=== PATIENT | male | born 1965 ===

== ENCOUNTER 2016-11-25 19:40 | Emergency (ER) | payer SELFPAY ==
[2016-11-25 19:47] VITALS: BP 145/90; PULSE 85; RESP 20; TEMP 98; O2SAT 99
[2016-11-25] MEDS ORDERED: Fluorescein 1 mg Ophthalmic Strip OS ONE (20:06)
--- NOTE | 2016-11-25 20:08 | C.PDOC ---
History Of Present Illness Patient reports pain, irritation, redness and tearing to left eye. 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 He was not wearing protective eyewear. Denies use of contacts or glasses, no visual changes Time Seen by Provider: 11/25/16 20:02 Chief Complaint (Nursing): ENT Problem History Per: Patient History/Exam Limitations: no limitations Onset/Duration Of Symptoms: Hrs Current Symptoms Are (Timing): Still Present Injury To Eye?: Yes Severity: Moderate Wears Contact Lens?: No Associated Symptoms: Pain, Other (irritation, redness, tearing). denies: Decreased Vision Recent travel outside of the [place]: No Past Medical History Reviewed: Historical Data, Nursing Documentation, Vital Signs Vital Signs: Last Vital Signs Temp 98 F 11/25/16 19:45 Pulse 85 11/25/16 19:45 Resp 20 11/25/16 19:45 BP 145/90 11/25/16 19:45 Pulse Ox 99 11/25/16 20:14 - [facility] Procedures OTHER SKIN & SUBQ I D (01/17/14) Family History: States: Unknown Family Hx - Social History Hx Alcohol Use: No Hx Substance Use: No - Immunization History Hx Tetanus Toxoid Vaccination: No Hx Influenza Vaccination: No Hx Pneumococcal Vaccination: No Review Of Systems Eyes: Positive for: Redness, Other (pain, irritation, redness, tearing to left eye). Negative for: Vision Change Physical Exam - Physical Exam Appears: Non-toxic, No Acute Distress Skin: Warm, Dry, No Rash Head: Atraumatic, Normacephalic Eye(s): bilateral: PERRL, EOMI, Eyelid Inflammation (none), left: Other ( diffuse conjunctival and scleral injection, tearing) Neurological/Psych: Oriented x3, Normal Speech, Normal Cognition ED Course And Treatment O2 Sat by Pulse Oximetry: 99 (room air) Pulse Ox Interpretation: Normal Medical Decision Making Medical Decision Making: Procedure: * tetracaine and fluoroscein with uptake to central eye no foreign body on eyelid eversion Dispo: antibiotic eye drop prescribed. Instruct to follow up with optho Disposition Counseled Patient/Family Regarding: Need For Followup, Rx Given - Disposition Referrals: Arnulfo Barrera MD [Staff Provider] - Disposition: HOME/ ROUTINE Disposition Time: 20:27 Condition: STABLE Additional Instructions: Aplicar 1 gota de antibitico cuatro veces al da christiano 7 palomares Seguimiento con oculista Prescriptions: Polymyxin/Trimethoprim Sulfate [Polytrim Ophth Soln] 1 drop OS QID #1 bottle Instructions: Corneal Abrasion (ED) Print Language: CHINESE - POA Present On Arrival: None - Clinical Impression Clinical Impression: Corneal abrasion - 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 - Scribe Statement The provider has reviewed the documentation as recorded by the Scribe Tobi Valentine All medical record entries made by the Scribe were at my direction and personally dictated by me. I have reviewed the chart and agree that the record accurately reflects my personal performance of the history, physical exam, medical decision making, and the department course for this patient. I have also personally directed, reviewed, and agree with the discharge instructions and disposition.
[2016-11-25] MEDS ORDERED: Fluorescein 1 mg Ophthalmic Strip ONE (20:15)
[2016-11-25] MEDS ORDERED: Tetracaine 0.5% Ophth (OR ONLY) ONE (20:15)
== END 2016-11-25 20:35 | disposition home or self-care (01) ==
LOC: C.ER 19:40
DX: S05.02XA Injury of conjunctiva and corneal abrasion without foreign body, left eye, initial encounter (principal); X58.XXXA Exposure to other specified factors, initial encounter; Y92.89 Other specified places as the place of occurrence of the external cause; Y99.0 Civilian activity done for income or pay

== ENCOUNTER 2016-12-23 09:50 | Emergency (ER) | payer SELFPAY ==
[2016-12-23 10:56] LABS: BASO % 0.8 % (0.0-2.0); EOS # 0.1 K/uL (0.0-0.7); EOS % 2.3 % (0.0-4.0); HEMOGLOBIN 13.7 g/dL (12.0-18.0); LYMPH # 1.6 K/uL (1.0-4.3); LYMPH % 31.7 % (20.0-40.0); MEAN CELL VOLUME 86.1 fL (80.0-94.0); MEAN CORPUSCULAR HEMOGLOBIN 29.1 pg (27.0-31.0); MEAN CORPUSCULAR HGB CONC 33.7 g/dL (33.0-37.0); MEAN PLATELET VOLUME 8.4 fL (7.2-11.7); MONO # 0.3 K/uL (0.0-0.8); MONO % 5.9 % (0.0-10.0); NEUT % 59.3 % (50.0-75.0); RBC 4.72 Mil/uL (4.40-5.90); RED CELL DISTRIBUTION WIDTH 13.9 % (11.5-14.5)
--- NOTE | 2016-12-23 11:01 | C.PDOC ---
History Of Present Illness 51 yr old male presents to the ER with complaints of rectal pain for the past 3 months. Patient states the pain is constant, worse with sitting down, walking and bowel movements. Patient reports he went to the clinic today but was sent to the ER from there. States he has been applying a cream from his home country with no relief. He also mentions a headache for the last 2 weeks. Patient denies any medical history and is not on any daily medicine. Also denies fever, nausea, vomiting, abdominal pain, diarrhea, change in stool, blood in stool, dysuria or incontinence, Time Seen by Provider: 12/23/16 09:53 Chief Complaint (Nursing): Headache History Per: Patient History/Exam Limitations: no limitations Onset/Duration Of Symptoms: Days (3 months ) Current Symptoms Are (Timing): Still Present Past Medical History Reviewed: Historical Data, Nursing Documentation, Vital Signs Vital Signs: Last Vital Signs Temp 98.4 F 12/23/16 12:48 Pulse 61 12/23/16 15:36 Resp 17 12/23/16 15:36 BP 141/81 12/23/16 15:36 Pulse Ox 99 12/23/16 16:09 - [facility] Procedures OTHER SKIN & SUBQ I D (01/17/14) Family History: States: No Known Family Hx - Social History Hx Alcohol Use: No Hx Substance Use: No - Immunization History Hx Tetanus Toxoid Vaccination: No Hx Influenza Vaccination: No Hx Pneumococcal Vaccination: No Review Of Systems Except As Marked, All Systems Reviewed And Found Negative. Constitutional: Negative for: Fever Gastrointestinal: Positive for: Rectal Pain. Negative for: Nausea, Vomiting, Abdominal Pain, Diarrhea Genitourinary: Negative for: Dysuria, Incontinence Physical Exam - Physical Exam Appears: Non-toxic, No Acute Distress Skin: Warm, Dry Head: Atraumatic, Normacephalic Chest: Symmetrical, No Tenderness Cardiovascular: Rhythm Regular, No Murmur Respiratory: Normal Breath Sounds, No Rales, No Rhonchi, No Wheezing Rectal: No Hemorrhoids, No Mass, No Tenderness, Other (No anal fissures. No palpable lesions or masses. ) Extremity: Normal ROM, No Swelling Neurological/Psych: Oriented x3, Normal Speech, Normal Motor ED Course And Treatment - Laboratory Results Result Diagrams: 12/23/16 10:33 12/23/16 10:33 O2 Sat by Pulse Oximetry: 99 - CT Scan/US CT - Head Other Rad Studies (CT/US): Read By Radiologist, Radiology Report Reviewed CT/US Interpretation: PROCEDURE: CT HEAD WITHOUT CONTRAST. HISTORY: Headache. COMPARISON: None available. TECHNIQUE: Axial computed tomography images were obtained through the head/brain without intravenous contrast. Radiation dose: Total exam DLP = 902.20 mGy-cm. This CT exam was performed using one or more of the following dose reduction techniques: Automated exposure control, adjustment of the mA and/or kV according to patient size, and/ or use of iterative reconstruction technique. FINDINGS: HEMORRHAGE: No intracranial hemorrhage. BRAIN: There is a focal low-attenuation area in the right posterior parietal white matter extending to the subcortical white matter. There is no mass effect or extra-axial fluid collection. VENTRICLES: The ventricles are normal in size, shape and configuration. CALVARIUM: The skull base and calvarium are normal. PARANASAL SINUSES: Predominantly clear. MASTOID AIR CELLS: Predominantly clear. OTHER FINDINGS: None. IMPRESSION: Asymmetric abnormal low density in the right posterior parietal white matter extending to the subcortical white matter, nonspecific and could represent an age indeterminate infarction, demyelination, vasogenic edema or mass. An MRI of the brain without and with intravenous contrast is recommended for further evaluation. No acute intracranial hemorrhage. MRI - Brain Other Rad Studies (CT/US): Read By Radiologist, Radiology Report Reviewed CT/US Interpretation: PROCEDURE: MRI BRAIN WITH AND WITHOUT CONTRAST. HISTORY : ? mass on CT. COMPARISON: Noncontrast head CT performed earlier the same day. TECHNIQUE: Multiplanar, multisequence MR images of the brain were obtained with and without intravenous contrast enhancement. 15 mL Omniscan injected intravenously. FINDINGS: HEMORRHAGE: None. DWI: No evidence of an acute or early subacute infarction. BRAIN PARENCHYMA: The questioned abnormal density in the right posterior parietal white matter on CT examination corresponds to mild peritrigonal hyperintensities, worse on the right. These are nonspecific and could represent mild chronic microangiopathic changes or periventricular leukomalacia. There is a 10 x 9 mm focal T2/FLAIR hyperintense area in the left medial temporal lobe without corresponding restricted diffusion or abnormal enhancement on post-contrast images. There is no mass effect or abnormal extra-axial fluid collection. The midline sagittal structures are normal. ENHANCEMENT: No abnormal intracranial enhancement. VENTRICLES: The ventricles are normal in size, shape and configuration. CRANIUM: There is normal bone marrow signal pattern. ORBITS: Grossly unremarkable. PARANASAL SINUSES/MASTOIDS: There is a retention cyst/ polyp in the right maxillary sinus. The remaining included paranasal sinuses and mastoid air cells are clear. VASCULAR SYSTEM: There are normal signal voids in the larger intracranial arteries. OTHER FINDINGS: None . IMPRESSION: 1. 10 x 9 mm focal nonenhancing abnormality in the left medial temporal lobe is strictly nonspecific. The differential considerations include remote infarction , gliosis, encephalopathy, vasculitis, demyelination and neoplasm. Short-term interval follow-up, clinical correlation and follow-up is advised. 2. The questioned abnormal density in the right posterior parietal white matter on CT examination corresponds to nonspecific peritrigonal white matter changes which could represent chronic microangiopathic changes or periventricular leukomalacia. Medical Decision Making Medical Decision Makin Disc MRI w rads Dr Lundberg- rec f/u MRI in 3 months [address] Florence re MRI- rec no further intervention or testing at this time. I disc results, plan for follow up, and rtr at length with the pt. he v/u and agrees w plan. all questions and concerns were addressed. Disposition - Disposition Referrals: [facility] [Outside] Yemi Sethi MD [Staff Provider] - Disposition: HOME/ ROUTINE Disposition Time: 16:09 Condition: STABLE Additional Instructions: Please follow up with your primary doctor to schedule a follow up MRI in 3 months. Follow up with the GI specialist for further evaluation of your rectal pain. Return to the ER for any worsening symptoms, fever, vomiting, seizures, visual changes, numbness, weakness or for any other concerns. Prescriptions: Acetaminophen with Codeine [Tylenol with Codeine #3 Tablet] 1 each PO Q4H PRN # 8 tablet PRN Reason: Pain, Moderate (4-7) Forms: Gen Discharge Inst Gambian Print Language: NORTHERN IRISH - Clinical Impression Clinical Impression: Rectal pain, chronic - Scribe Statement The provider has reviewed the documentation as recorded by the Shakir Giles Provider Attestation: All medical record entries made by the Viniibbev were at my direction and personally dictated by me. I have reviewed the chart and agree that the record accurately reflects my personal performance of the history, physical exam, medical decision making, and the department course for this patient. I have also personally directed, reviewed, and agree with the discharge instructions and disposition.
[2016-12-23 11:16] LABS: ALBUMIN 4.3 g/dL (3.5-5.0)
[2016-12-23 11:18] LABS: GFR AFRICAN-AMERICAN > 60; GFR NON-AFRICAN AMERICAN > 60
[2016-12-23 11:19] LABS: ALB/GLOB RATIO 1.2 (1.0-2.1); ALT/SGPT 19 U/L (21-72); AST/SGOT 18 U/L (17-59); BLOOD UREA NITROGEN 17 mg/dL (9-20)
[2016-12-23 11:20] LABS: CALCIUM 9.3 mg/dl (8.6-10.4)
--- NOTE | 2016-12-23 11:37 | CT ---
PROCEDURE: CT HEAD WITHOUT CONTRAST. HISTORY: Headache COMPARISON: None available. TECHNIQUE: Axial computed tomography images were obtained through the head/brain without intravenous contrast. Radiation dose: Total exam DLP = 902.20 mGy-cm. This CT exam was performed using one or more of the following dose reduction techniques: Automated exposure control, adjustment of the mA and/or kV according to patient size, and/or use of iterative reconstruction technique. FINDINGS: HEMORRHAGE: No intracranial hemorrhage. BRAIN: There is a focal low-attenuation area in the right posterior parietal white matter extending to the subcortical white matter. There is no mass effect or extra-axial fluid collection. VENTRICLES: The ventricles are normal in size, shape and configuration. CALVARIUM: The skull base and calvarium are normal. PARANASAL SINUSES: Predominantly clear. MASTOID AIR CELLS: Predominantly clear. OTHER FINDINGS: None. IMPRESSION: Asymmetric abnormal low density in the right posterior parietal white matter extending to the subcortical white matter, nonspecific and could represent an age indeterminate infarction, demyelination, vasogenic edema or mass. An MRI of the brain without and with intravenous contrast is recommended for further evaluation. No acute intracranial hemorrhage.
[2016-12-23 11:49] LABS: URINE BILIRUBIN NEGATIVE (NEGATIVE); URINE BLOOD 1+ (NEGATIVE); URINE CLARITY Clear (Clear); URINE COLOR Straw (YELLOW); URINE GLUCOSE (UA) NORMAL (Normal); URINE LEUKOCYTE ESTERASE NEG Leu/uL (Negative); URINE NITRATE NEGATIVE (NEGATIVE); URINE PROTEIN NEGATIVE (NEGATIVE); URINE UROBILINOGEN NORMAL mg/dL (0.2-1.0)
[2016-12-23 12:48] VITALS: TEMP 98.4
[2016-12-23] MEDS ORDERED: Gadodiamide 287 MG/ML VIAL (15ML) IV ONE (13:30)
--- NOTE | 2016-12-23 14:19 | MRI ---
PROCEDURE: MRI BRAIN WITH AND WITHOUT CONTRAST HISTORY: ? mass on CT COMPARISON: Noncontrast head CT performed earlier the same day. TECHNIQUE: Multiplanar, multisequence MR images of the brain were obtained with and without intravenous contrast enhancement. 15 mL Omniscan injected intravenously. FINDINGS: HEMORRHAGE: None DWI: No evidence of an acute or early subacute infarction. BRAIN PARENCHYMA: The questioned abnormal density in the right posterior parietal white matter on CT examination corresponds to mild peritrigonal hyperintensities, worse on the right. These are nonspecific and could represent mild chronic microangiopathic changes or periventricular leukomalacia. There is a 10 x 9 mm focal T2/FLAIR hyperintense area in the left medial temporal lobe without corresponding restricted diffusion or abnormal enhancement on post-contrast images. There is no mass effect or abnormal extra-axial fluid collection. The midline sagittal structures are normal. ENHANCEMENT: No abnormal intracranial enhancement. VENTRICLES: The ventricles are normal in size, shape and configuration. CRANIUM: There is normal bone marrow signal pattern. ORBITS: Grossly unremarkable. PARANASAL SINUSES/MASTOIDS: There is a retention cyst/ polyp in the right maxillary sinus. The remaining included paranasal sinuses and mastoid air cells are clear. VASCULAR SYSTEM: There are normal signal voids in the larger intracranial arteries. OTHER FINDINGS: None . IMPRESSION: 1. 10 x 9 mm focal nonenhancing abnormality in the left medial temporal lobe is strictly nonspecific. The differential considerations include remote infarction, gliosis, encephalopathy, vasculitis, demyelination and neoplasm. Short-term interval follow-up, clinical correlation and follow-up is advised. 2. The questioned abnormal density in the right posterior parietal white matter on CT examination corresponds to nonspecific peritrigonal white matter changes which could represent chronic microangiopathic changes or periventricular leukomalacia.
[2016-12-23 15:37] VITALS: BP 141/81; PULSE 61; RESP 17
[2016-12-23 16:09] VITALS: O2SAT 99
== END 2016-12-23 16:34 | disposition home or self-care (01) ==
LOC: C.ER 09:50
DX: K62.89 Other specified diseases of anus and rectum (principal); G89.29 Other chronic pain
CPT/HCPCS: 70450; 70553; 80053; 81001; 82948; 85025; 96374; 99285; A9579; G0328; J1885

== ENCOUNTER 2017-12-30 00:43 | Emergency (ER) | payer OTHER ==
[2017-12-30 01:06] VITALS: PULSE 70
[2017-12-30] MEDS ORDERED: Alum-Mag Hydrox-Simethicone Susp (30 mL) PO STA (01:50)
[2017-12-30 02:34] LABS: BASO % 0.2 % (0.0-2.0); EOS # 0.1 K/uL (0.0-0.7); EOS % 0.6 % (0.0-4.0); HEMOGLOBIN 13.4 g/dL (12.0-18.0); LYMPH # 1.3 K/uL (1.0-4.3); LYMPH % 13.4 % (20.0-40.0); MEAN CELL VOLUME 84.6 fL (80.0-94.0); MEAN CORPUSCULAR HEMOGLOBIN 28.9 pg (27.0-31.0); MEAN CORPUSCULAR HGB CONC 34.2 g/dL (33.0-37.0); MEAN PLATELET VOLUME 8.7 fL (7.2-11.7); MONO # 0.7 K/uL (0.0-0.8); MONO % 7.3 % (0.0-10.0); NEUT # 7.8 K/uL (1.8-7.0); NEUT % 78.5 % (50.0-75.0); NRBC % 0.1 % (0.0-2.0); RBC 4.64 Mil/uL (4.40-5.90); RED CELL DISTRIBUTION WIDTH 14.2 % (11.5-14.5); WHITE BLOOD COUNT 9.9 K/uL (4.8-10.8)
[2017-12-30 02:42] LABS: ALB/GLOB RATIO 1.4 (1.0-2.1); ALBUMIN 4.5 g/dL (3.5-5.0); ALT/SGPT 25 U/L (21-72); AST/SGOT 17 U/L (17-59); BLOOD UREA NITROGEN 17 mg/dL (9-20); CALCIUM 9.6 mg/dl (8.6-10.4); GFR AFRICAN-AMERICAN > 60; GFR NON-AFRICAN AMERICAN > 60; LIPASE 24 U/L (23-300)
[2017-12-30] MEDS ORDERED: Magnesium Citrate Oral SOL (300 ml) PO ONE (02:55)
--- NOTE | 2017-12-30 02:58 | C.PDOC ---
History Of Present Illness 52 y/o male presents to ED for complaints of abdominal discomfort associated with nausea and described as gas like pain that began yesterday. Patient also reports straining during bowel movement with small hard stools. Denies blood in stool, vomiting, fever, hematuria, or UTI symptoms. Patients states he took a tablet of plidan for gas pain from his country with no relief. Time Seen by Provider: 12/30/17 01:09 Chief Complaint (Nursing): Abdominal Pain History Per: Patient History/Exam Limitations: no limitations Onset/Duration Of Symptoms: Days (1) Current Symptoms Are (Timing): Still Present Location Of Pain/Discomfort: Diffuse Radiation Of Pain To:: None Quality Of Discomfort: Gas Associated Symptoms: Nausea, Constipation. denies: Fever, Chills, Vomiting, Diarrhea, Urinary Symptoms Exacerbating Factors: None Alleviating Factors: None Last Bowel Movement: Days Ago Recent travel outside of the [place]: No Past Medical History Reviewed: Historical Data, Nursing Documentation, Vital Signs Vital Signs: Last Vital Signs Temp 98.4 F 12/30/17 03:15 Pulse 70 12/30/17 03:15 Resp 18 12/30/17 03:15 BP 156/95 H 12/30/17 03:15 Pulse Ox 99 12/30/17 03:15 - Medical History PMH: No Chronic Diseases - [facility] Procedures OTHER SKIN & SUBQ I D (01/17/14) Family History: States: Unknown Family Hx - Social History Hx Alcohol Use: No Hx Substance Use: No - Immunization History Hx Tetanus Toxoid Vaccination: No Hx Influenza Vaccination: No Hx Pneumococcal Vaccination: No Review Of Systems Constitutional: Negative for: Fever, Chills Gastrointestinal: Positive for: Nausea, Abdominal Pain, Constipation. Negative for: Vomiting, Diarrhea Genitourinary: Negative for: Dysuria, Hematuria Skin: Negative for: Rash Neurological: Negative for: Weakness, Numbness Physical Exam - Physical Exam Appears: Well, Non-toxic, No Acute Distress Skin: Normal Color, Warm, Dry, No Rash Head: Atraumatic, Normacephalic Eye(s): bilateral: Normal Inspection, PERRL, EOMI Oral Mucosa: Moist Neck: Supple Chest: Symmetrical, No Tenderness Cardiovascular: Rhythm Regular Respiratory: Normal Breath Sounds, No Decreased Breath Sounds, No Rales, No Rhonchi, No Wheezing Gastrointestinal/Abdominal: Bowel Sounds (Active ), Soft, Tenderness (Diffusly minimal ), Distention (Minimal ), No Guarding, No Rebound Back: Normal Inspection, No CVA Tenderness Extremity: Normal ROM, No Deformity Extremity: Bilateral: Atraumatic, Normal Color And Temperature, Normal ROM Neurological/Psych: Oriented x3, Normal Speech Gait: Steady ED Course And Treatment - Laboratory Results Result Diagrams: 12/30/17 02:27 07 02:27 O2 Sat by Pulse Oximetry: 100 (RA) Pulse Ox Interpretation: Normal - Other Rad Abdomen X-Ray: Interpreted by Me, Viewed By Me Interpretation: Moderate stools , no acute pathology. Pt appears well in NAD. Abdomen non tender. citroma PO ordered and given to pt who is advised to continue with miralax at home as well as needed for constipation. Pt understand and agreed to plan Progress Note: Administered Zofran, Maalox, and Citrate. Ordered blood work, urinalysis, and Abdomen X-Ray. 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 - Scribe Statement The provider has reviewed the documentation as recorded by the Shakir Bedolla All medical record entries made by the Shakir were at my direction and personally dictated by me. I have reviewed the chart and agree that the record accurately reflects my personal performance of the history, physical exam, medical decision making, and the department course for this patient. I have also personally directed, reviewed, and agree with the discharge instructions and disposition.
[2017-12-30] MEDS ORDERED: Magnesium Citrate Oral SOL (300 ml) ONE (03:08)
[2017-12-30] MEDS ORDERED: Alum-Mag Hydrox-Simethicone Susp (30 mL) ONE (03:16)
[2017-12-30 03:40] VITALS: BP 156/95; RESP 18; TEMP 98.4
[2017-12-30 04:40] VITALS: O2SAT 100
--- NOTE | 2017-12-30 08:17 | RAD ---
Date of service: 12/30/2017 HISTORY: abdominal pain, constipation COMPARISON: No prior. FINDINGS: BOWEL: Normal. No obstruction. No free air. Stool retention. - mild in the right colon BONES: Minimal thoraco lumbar spondylosis. Incomplete S1 posterior element closure OTHER FINDINGS: None. IMPRESSION: Mild stool retention. No obstruction
== END 2017-12-30 03:15 | disposition home or self-care (01) ==
LOC: C.ER 00:43
DX: K59.00 Constipation, unspecified (principal)
CPT/HCPCS: 74019; 80053; 83690; 85025; 96374; 99285; J2405

== ENCOUNTER 2018-06-21 12:49 | Emergency (ER) | payer OTHER ==
[2018-06-21 13:06] VITALS: BP 154/92; PULSE 75; RESP 18; TEMP 98.2; O2SAT 97
[2018-06-21] MEDS ORDERED: Lidocaine Hydrochloride 5 ML INJ ONE (13:31)
--- NOTE | 2018-06-21 13:43 | C.PDOC ---
History Of Present Illness 52 year old male presents to the ED complaining of mild pain and bump to left jaw for 2 weeks. Notes the bump was small and then it has been increasingly getting bigger. Reports history of same bump. Last presentation of bump was 10 months ago. Also notes the bump was drained several years ago. Denies any fever or chills. Time Seen by Provider: 06/21/18 13:15 Chief Complaint (Nursing): Abnormal Skin Integrity History Per: Patient History/Exam Limitations: no limitations Onset/Duration Of Symptoms: Days Current Symptoms Are (Timing): Still Present Location Of Injury: Left: Head (bump to left jaw ) Quality Of Symptoms: Painful Past Medical History Reviewed: Historical Data, Nursing Documentation, Vital Signs Vital Signs: Last Vital Signs Temp 98.2 F 06/21/18 13:01 Pulse 75 06/21/18 13:01 Resp 18 06/21/18 13:01 BP 154/92 H 06/21/18 13:01 Pulse Ox 97 06/21/18 13:01 - Medical History PMH: No Chronic Diseases Surgical History: Appendectomy - [facility] Procedures OTHER SKIN & SUBQ I D (01/17/14) Family History: States: No Known Family Hx - Social History Hx Alcohol Use: No Hx Substance Use: No - Immunization History Hx Tetanus Toxoid Vaccination: No Hx Influenza Vaccination: No Hx Pneumococcal Vaccination: No Review Of Systems Constitutional: Negative for: Fever, Chills Skin: Positive for: Other (bump to left jaw) Physical Exam - Physical Exam Appears: Non-toxic, No Acute Distress Skin: Warm, Dry Head: Normacephalic, Other (1cm area of swellin with mild fluctuance to left mandible. (-) erythema ) Eye(s): bilateral: Normal Inspection, PERRL, EOMI Ear(s): Bilateral: Normal Nose: Normal Oral Mucosa: Moist Neck: Supple Chest: Symmetrical Cardiovascular: Rhythm Regular Respiratory: Normal Breath Sounds, No Rales, No Rhonchi, No Wheezing Neurological/Psych: Oriented x3, Normal Speech Gait: Steady ED Course And Treatment O2 Sat by Pulse Oximetry: 97 (RA) Pulse Ox Interpretation: Normal - Incision & Drainage Of Abscess Anesthesia: Lidocaine 1% Prep Used: Betadine (Small amount of thick, sebaceous material drained. No purulent material.) Procedure: Incised W/Scalpel Blade#: (11) Medical Decision Making Medical Decision Making: Cyst drained. Patient tolerated procedure well. Instructed to follow up with Clinic for further evaluation. Disposition - Disposition Disposition: HOME/ ROUTINE Disposition Time: 13:43 Condition: STABLE Additional Instructions: MAGDI DICKENS, thank you for letting us take care of you today. Your provider was Rae Noonan MD and you were treated for DENTAL PAIN. The emergency medical care you received today was directed at your acute symptoms. If you were prescribed any medication, please fill it and take as directed. It may take several days for your symptoms to resolve. Return to the Emergency Department if your symptoms worsen, do not improve, or if you have any other problems. Please contact your doctor or call one of the physicians/clinics you have been referred to that are listed on the Patient Visit Information form that is included in your discharge packet. Bring any paperwork you were given at discharge with you along with any medications you are taking to your follow up visit. Our treatment cannot replace ongoing medical care by a primary care provider outside of the emergency department. Thank you for allowing the [facility] team to be part of your care today. If you had an X-Ray or CT scan: A Radiologist will review the ED reading if any change in treatment is needed we will contact you. If you had a blood, urine, or wound culture: It will take several days for the results, if any change in treatment is needed we will contact you. If you had an STI test: It will take 48 hours for the results. Please call after 1 week if you have not heard back. Instructions: Epidermal Cyst (DC) Forms: Gen Discharge Inst Arabic, AwesomePiece (Korean), [employer] (Arabic) Print Language: FRISIAN - Clinical Impression Clinical Impression: Cyst of mandible - Scribe Statement The provider has reviewed the documentation as recorded by the Shakir Duarte All medical record entries made by the Viniibbev were at my direction and personally dictated by me. I have reviewed the chart and agree that the record accurately reflects my personal performance of the history, physical exam, medical decision making, and the department course for this patient. I have also personally directed, reviewed, and agree with the discharge instructions and disposition.
== END 2018-06-21 13:53 | disposition home or self-care (01) ==
LOC: C.ER 12:49
DX: M27.40 Unspecified cyst of jaw (principal)